=== PATIENT | male | born 1965 | race Caucasian/White ===

== ENCOUNTER 2022-08-09 17:01 | Day surgery (SDC) | payer SELFPAY ==
[2022-08-09] MEDS ORDERED: Neomycin-Polymyxin 1 ML AMP ONE (19:16)
[2022-08-09] MEDS ORDERED: Bupivacaine PF 0.5% 30 ML VIAL ONE (19:16)
[2022-08-09] MEDS ORDERED: Mineral Oil Sterile 10 ML VIAL ONE (19:16)
[2022-08-09] MEDS ORDERED: Bacitracin Zinc Ointment 30 gm TUBE ONE (19:16)
[2022-08-09] MEDS ORDERED: Midazolam HCl 2 mg/2 ml Vial ONE (19:35)
[2022-08-09] MEDS ORDERED: Fentanyl 250 MCG/5 ML VIAL ONE (19:35)
[2022-08-09] MEDS ORDERED: PROPOFOL 200 MG/20 ML VIAL ONE (19:57)
[2022-08-09] MEDS ORDERED: PHENYLEPHRINE-NS 100 MCG/ML 10 ML SYRINGE ONE (19:57)
[2022-08-09] MEDS ORDERED: Lidocaine 1% PF 5 ML VIAL ONE (19:57)
[2022-08-09] MEDS ORDERED: Ondansetron PF 4 MG/2 ML Vial ONE (19:57)
[2022-08-09] MEDS ORDERED: Dexamethasone 20 MG/5 ML VIAL ONE (19:57)
[2022-08-09] MEDS ORDERED: Ondansetron HCl/PF 4 MG/2 ML Vial IVP PRN (21:35)
[2022-08-09] MEDS ORDERED: Promethazine HCl 25 MG/ML VIAL IM PRN (21:35)
[2022-08-09] MEDS ORDERED: Promethazine HCl 25 MG/ML VIAL IVPB PRN (21:35)
[2022-08-09] MEDS ORDERED: Ketorolac Tromethamine 30 MG/ML VIAL ONE ×2 (22:11→22:12)
== END 2022-08-09 22:43 | disposition home or self-care (01) ==
LOC: SDC 17:01
PROVIDERS: ATTEND Orthopaedic Surgery Hand Surgery
PROC: 0HQGXZZ Repair Left Hand Skin, External Approach (ICD-10-PCS; principal; 2022-08-09)
PROC: 0JBK0ZZ Excision of Left Hand Subcutaneous Tissue and Fascia, Open Approach (ICD-10-PCS; principal; 2022-08-09)
PROC: 0PSV04Z Reposition Left Finger Phalanx with Internal Fixation Device, Open Approach (ICD-10-PCS; principal; 2022-08-09)
PROC: 0HQQXZZ Repair Finger Nail, External Approach (ICD-10-PCS; principal; 2022-08-09)
DX: S62.661B Nondisplaced fracture of distal phalanx of left index finger, initial encounter for open fracture (principal); S61.313A Laceration without foreign body of left middle finger with damage to nail, initial encounter; I10 Essential (primary) hypertension; E78.5 Hyperlipidemia, unspecified; G47.30 Sleep apnea, unspecified; F17.200 Nicotine dependence, unspecified, uncomplicated; E66.9 Obesity, unspecified; Z68.30 Body mass index [BMI] 30.0-30.9, adult; Z79.899 Other long term (current) drug therapy; W31.2XXA Contact with powered woodworking and forming machines, initial encounter
CPT/HCPCS: C1894; J1100; J1885; J2250; J2405; J2704; J3010; S0020

== ENCOUNTER 2024-02-11 08:40 | Outpatient (CLI) | payer OTHER | END 2024-02-11 08:41 | disposition home or self-care (01) | LOC: PET 08:40 | PROVIDERS: ATTEND Internal Medicine Hematology & Oncology | DX: C43.4 Malignant melanoma of scalp and neck (principal); K11.9 Disease of salivary gland, unspecified; R59.0 Localized enlarged lymph nodes | CPT/HCPCS: 78816; A9552 ==

== ENCOUNTER 2024-06-12 08:45 | Outpatient (CLI) | payer OTHER | END 2024-06-12 08:46 | disposition home or self-care (01) | LOC: PET 08:45 | PROVIDERS: ATTEND Internal Medicine Hematology & Oncology | DX: C43.4 Malignant melanoma of scalp and neck (principal); K11.8 Other diseases of salivary glands | CPT/HCPCS: 78816; A9552 ==

== ENCOUNTER 2024-06-24 15:15 | Outpatient (CLI) | payer OTHER | END 2024-06-24 15:16 | disposition home or self-care (01) | LOC: SCSMRI 15:15 | PROVIDERS: ATTEND Internal Medicine Hematology & Oncology | DX: H47.10 Unspecified papilledema (principal); C79.9 Secondary malignant neoplasm of unspecified site; M89.9 Disorder of bone, unspecified; L98.9 Disorder of the skin and subcutaneous tissue, unspecified | CPT/HCPCS: 70553; 76376 ==

== ENCOUNTER 2024-09-11 08:00 | Outpatient (CLI) | payer OTHER | END 2024-09-11 08:01 | disposition home or self-care (01) | LOC: PET 08:00 | PROVIDERS: ATTEND Internal Medicine Hematology & Oncology | DX: C43.4 Malignant melanoma of scalp and neck (principal); R59.0 Localized enlarged lymph nodes | CPT/HCPCS: 78816; A9552 ==

== ENCOUNTER 2025-03-05 12:30 | Outpatient (CLI) | payer BC | END 2025-03-05 12:31 | disposition home or self-care (01) | LOC: PET 12:30 | PROVIDERS: ATTEND Internal Medicine Hematology & Oncology | DX: C43.4 Malignant melanoma of scalp and neck (principal); C77.3 Secondary and unspecified malignant neoplasm of axilla and upper limb lymph nodes; M79.89 Other specified soft tissue disorders; R22.31 Localized swelling, mass and lump, right upper limb; K11.8 Other diseases of salivary glands | CPT/HCPCS: 78816; A9552 ==

== ENCOUNTER 2025-05-20 08:00 | Outpatient (CLI) | payer BC | END 2025-05-20 08:01 | disposition home or self-care (01) | LOC: PET 08:00 | PROVIDERS: ATTEND Internal Medicine Hematology & Oncology | DX: C43.4 Malignant melanoma of scalp and neck (principal); M25.871 Other specified joint disorders, right ankle and foot; K11.8 Other diseases of salivary glands; Z97.8 Presence of other specified devices | CPT/HCPCS: 78816; A9552 ==

== ENCOUNTER 2025-07-20 07:44 | Outpatient (CLI) | payer BC, OTHER | END 2025-07-20 07:45 | disposition home or self-care (01) | LOC: LABBT 07:44 | PROVIDERS: ATTEND Orthopaedic Surgery Hand Surgery | DX: Z01.810 Encounter for preprocedural cardiovascular examination (principal); M24.131 Other articular cartilage disorders, right wrist | CPT/HCPCS: 93005; 93010 ==